=== PATIENT | male | born 1990 | race Caucasian/White ===

== ENCOUNTER 2024-04-10 12:15 | Emergency (ER) | payer BC ==
[~2024-04-10] VITALS: Ht 170.2 cm; Wt 81.8 kg
[2024-04-10 12:36] VITALS: BP 125/72; TEMP 97.4
[2024-04-10] MEDS ORDERED: CLEOCIN HCL300 MG PO (14:59)
[2024-04-10 15:20] VITALS: PULSE 65
== END 2024-04-10 15:20 | disposition home or self-care (01) ==
LOC: COL.ER 12:15
DX: S62.630A Displaced fracture of distal phalanx of right index finger, initial encounter for closed fracture (principal); Z23 Encounter for immunization; W27.0XXA Contact with workbench tool, initial encounter